=== PATIENT | female | born 1945 | race Caucasian/White ===

== ENCOUNTER → 2017-07-15 | Outpatient (CLI) | payer BC ==
[~2017-07-15] MED LIST: LEVO50TA PO; RALO60TA30 PO
--- NOTE | 2017-07-16 15:08 | MAMMOGRAPHY REPORT ---
BILATERAL DIGITAL SCREENING MAMMOGRAM TOMOSYNTHESIS WITH CAD: 07/15/2017 CLINICAL HISTORY: Routine screening. Patient has no complaints. TECHNIQUE: Breast tomosynthesis in addition to standard 2D mammography was performed. Current study was also evaluated with a Computer Aided Detection (CAD) system. COMPARISON: Comparison is made to exams dated: 05/14/2016 mammogram, 02/13/2015 mammogram, 12/13/2013 mammogram, 11/04/2012 mammogram, 08/22/2011 mammogram, and 03/14/2010 mammogram - [facility] enter. BREAST COMPOSITION: The tissue of both breasts is almost entirely fatty. FINDINGS: There is a stable intramammary lymph node in the right upper outer quadrant. No suspicious mass, architectural distortion or cluster of microcalcifications is seen. IMPRESSION: ACR BI-RADS CATEGORY 1: NEGATIVE There is no mammographic evidence of malignancy. A 1 year screening mammogram is recommended. The pa tient will receive written notification of the results. Approximately 10% of breast cancers are not detected with mammography. A negative mammographic report should not delay biopsy if a clinically suggestive mass is present. Taylor Burr M.D. ay/:07/15/2017 14:32:46 Assembly Lead Person: Simran Macias, [facility] letter sent: Normal 1/2 BI-RADS Code: ACR BI-RADS Category 1: Negative
== END | disposition home or self-care (01) ==
LOC: C.MAMM 11:16
PROVIDERS: ATTEND Obstetrics & Gynecology
DX: Z12.31 Encounter for screening mammogram for malignant neoplasm of breast (principal)

== ENCOUNTER → 2017-09-18 | Outpatient (CLI) | payer BC ==
--- NOTE | 2017-09-18 16:18 | DIAGNOSTIC IMAGING REPORT ---
CHEST 2 VIEWS ROUTINE HISTORY: 72 years-old Female EXERTIONAL DYSPNEA acute dyspnea with shortness of breath COMPARISON: Chest radiographs 05/02/2008 TECHNIQUE: PA and lateral views of the chest FINDINGS: Cardiomediastinal and hilar silhouettes are within normal limits. Mild tortuosity of the descending thoracic aorta. No pneumothorax, pleural effusion, focal airspace consolidation or overt pulmonary edema. The bones of the chest appear grossly intact. Degenerative changes are seen within the shoulders and spine. IMPRESSION: No acute process. The above report was generated using voice recognition software. It may contain grammatical, syntax or spelling errors. Electronically signed by: Nick Gaines M.D. 09/18/2017 4:16 PM Dictated Date/Time: 09/18/2017 4:14 PM
== END | disposition home or self-care (01) ==
LOC: C.RAD 15:44
PROVIDERS: ATTEND Family Medicine
DX: R06.09 Other forms of dyspnea (principal)

== ENCOUNTER → 2017-10-02 | Outpatient (CLI) | payer BC | END | disposition home or self-care (01) | LOC: C.MAMM 12:43 | PROVIDERS: ATTEND Family Medicine | DX: M85.852 Other specified disorders of bone density and structure, left thigh (principal) ==

== ENCOUNTER 2022-06-05 08:26 | Inpatient (IN) ==
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
--- NOTE | 2022-06-05 09:25 | XRay Report ---
XR chest 1V portable HISTORY: 77 years-old Female Chest pain, nonspecific acute chest pain COMPARISON: Chest radiograph 04/11/2018 TECHNIQUE: AP view of the chest FINDINGS: Cardiac silhouette is enlarged. Pulmonary vascular congestion. No pneumothorax, large pleural effusio n or lobar airspace consolidation. Degenerative changes of the shoulders and spine. Loose body of the left axillary recess. IMPRESSION: Cardiomegaly with pulmonary vascular congestion. ACT 112: Negative or not required by law. The above report was generated using voice recognition software. It may contain grammatical, syntax o r spelling errors. Electronically signed by: Erick Gaines M.D. 06/05/2022 9:23 AM
[2022-06-05 09:36] LABS: Basophils # (auto) 0.04 K/uL (0-0.2); Basophils % (auto) 0.7 %; Eosinophils # (auto) 0.27 K/uL (0-0.50); Eosinophils % (auto) 4.8 %; Hematocrit (blood only) 40.3 % (34.1-44.9); Hemoglobin 13.4 g/dl (12.0-16.0); Immature Granulocytes # (auto) 0.02 K/uL (0.00-0.02); Immature Granulocytes % (auto) 0.4 %; Mean Corpuscular Hemoglobin 31.2 pg (25.0-34.0); Mean Corpuscular Hgb Conc 33.3 g/dL (32.0-36.0); Mean Corpuscular Volume 93.9 fL (80.0-100.0); Mean Platelet Volume 9.6 fL (9.4-12.3); Monocytes # (auto) 0.51 K/uL (0.24-0.82); Neutrophils # (auto) 3.52 K/uL (1.4-6.5); Neutrophils % (auto) 62.1 %; Platelet Count 250 K/uL (130-400); Red Blood Count 4.29 M/uL (3.93-5.22); White Blood Count 5.66 K/ul (4.8-10.8)
[2022-06-05 10:16] LABS: Albumin Globulin Ratio 1.3 (0.9-2); BUN Creatinine Ratio 20.3 (10-20); Bilirubin,Total 0.6 mg/dl (0.2-1.0); Calcium 9.7 mg/dl (8.5-10.1); Creatinine Clr Calc Pharmacy 60.6 ml/min; Est GFR (African American) 84.3 ml/min; Est GFR (Non-African American) 72.7 ml/min; Globulin 3.1 gm/dl (2.5-4.0); Potassium 3.9 mmol/L (3.5-5.1); Total Protein 7.1 gm/dl (6.0-8.3)
[2022-06-05 10:19] LABS: Troponin I High Sensitivity 634.1 pg/ml (0-14)
[2022-06-05] MEDS ORDERED: ASPIRIN CHEW 324 MG PO STA (10:22)
[2022-06-05] MEDS ORDERED: FUROSEMIDE INJ 20 MG/2 ML VIAL IV STA (10:41)
--- NOTE | 2022-06-05 10:50 | History & Physical Report ---
Date of Service June 05, 2022 Assessment & Plan (1) Shortness of breath: Plan: New orthopnea 2 days, 10 seconds of chest pain otherwise chest pain-free. In the setting of EKG changes as below and elevated troponin Stat echo ordered. Discussed with cardiology, on initial review appears to be globally hypokinetic. Recommend proceeding with cath today. CXR: Cardiomegaly with pulmonary vascular congestion. - EKG: Normal sinus rhythm. Left bundle branch block. QTc 510 MS. Compared to 08/05/2019 QRS has widened, left bundle branch is new. - No leukocytosis, Hemoglobin 13.4, Sodium 141, Potassium 3.9 - Creatinine 0.79, with normal baseline - Admitting troponin 634.1 - COVID-negative Lasix ordered, and continued daily -Last stress echo 03/2018: Normal at 7.1 METS, no inducible EKG changes/chest pain at that time. EF 55-60% with appropriate augmentation. No inducible wall motion abnormalities at that time (2) Type 2 diabetes mellitus: Plan: Well-controlled, per patient last A1c 6.1 on metformin 500 mg daily Glucose checks AC/at bedtime Hold home metformin SSI goal [id number], minimal home medication requirements will start with conservative scale (3) Hypothyroidism: Plan: Continue Synthroid alternating between 50 and 75 mcg daily TSH/T4 pending (4) Orthopnea: Plan: Suspect due to CHF, cardiac eval as above DVT prophylaxis: Lovenox Diet: N.p.o. pending cardiac evaluation, then low-salt Disposition: PCU CODE STATUS: DNR/DNI, discussed with patient and (5) Hyperlipidemia: Plan: Continue rosuvastatin, dose adjustment pending results of cardiac eval and lipid panel History of Present Illness Primary Care Provider: Anthony Marte MD Ida is a 77-year-old female with a past medical history of hypothyroidism, hyperlipidemia, type 2 diabetes Who presents with shortness of breath. She has had 1 day of cough, chills, shortness of breath without nausea/vomiting/diarrhea. She is unable to ambulate due to severe dyspnea on exertion EKG: Normal sinus rhythm. Left bundle branch block. QTc 510 MS. Compared to 08/05/2019 QRS has widened, left bundle branch is new. No leukocytosis Hemoglobin 13.4 Sodium 141 Potassium 3.9 Creatinine 0.79, with normal baseline Admitting troponin 634.1 COVID-negative CXR: Cardiomegaly with pulmonary vascular congestion. Loose body of the left axillary recess no Stress echo 03/2018: Normal at 7.1 METS, no inducible EKG changes/chest pain at that time. EF 55-60% with appropriate augmentation. No inducible wall motion abnormalities at that time Ida is seen at the beside. Reports a few days ago she started to develop a dry cough. Worse when laying down and associated with a gurgly wheeze just when laying down. Started developing worsening dyspnea with exertion and foun djust coming up from the basement completely winded. +cough she had to strain to bring up some clearish phlegm/spit. She came in this morning because 3-4am she woke up in bed and felt like she was out of breath like she ran just laying in bed. No improvement with rest of sitting in a chair. Waiting until 8am and talked to Dr. Bunn's nurse who recommended to come in. No chest pain at any point, but when she was very out of breath this morning she sat up in a chair had some bilateral backpain below the shoulders but above the lumbar spine. No back pain at time of assessment. Lasted only 10 seconds. No hx of CAD. Distant history of an EKG 'little spot' but not sure what is was Meds Reconciled Last Aic ~6.1 per patient Fhx: Father when Ida was young, empysema. Had early heart failure but doesn't know the details. Medical History: Reviewed Medications: Reviewed. Synthroid Surgical History: Reviewed Allergies: Reviewed Social History: Social tobacco in college, smoked ~8 years 1ppd none in last 40 years. Social alcohol maybe 1x per week, 1 drink. Decab soda Code Status: Surrogate DM Jace Isaac [phone]. Allergies Allergy/AdvReac Type Severity Reaction Status Date / Time codeine AdvReac Mild EXCITABILIT Verified 01/16/22 13:52 Y Home Medications Medication Instructions Recorded Confirmed Type calcium 600 mg-D3 800 unit-mag11 1 tab PO DAILY 04/11/18 06/05/22 History 50 es-pmyz-ucegkk-ashley-s.borat tablet (Caltrate 600-D Plus Minerals) fluocinonide 0.05 % topical cream 1 applic topical UD PRN Dry Skin 04/11/18 06/05/22 History multivitamin 1 tab PO DAILY 04/11/18 06/05/22 History btctkzq-cjqnqhsvwisut-wxdhxvrv 250 1 tab PO 09/21/19 11/23/21 History mg-250 mg-65 mg tablet ibuprofen 200 mg capsule 200 mg PO 09/21/19 11/23/21 History rosuvastatin 5 mg tablet (Crestor) 5 mg PO DAILY 11/23/21 06/05/22 History levothyroxine 50 mcg tablet 50 mcg PO DAILY 01/16/22 06/05/22 History (Synthroid) metformin 500 mg tablet 500 mg PO BID 01/16/22 06/05/22 History Past Med/Surg History Medical History (Updated 06/05/22 @ 11:24 by Edward Rivera MD) Diverticulitis History of mammogram Hyperlipidemia Hypothyroidism Osteopenia Thyroid disease Surgical History H/O foot surgery History of colonoscopy History of tonsillectomy and adenoidectomy History of tubal ligation History of wisdom tooth extraction Status post laser cataract surgery of both eyes Family History Sister Uterine cancer at age 69 Mother Non Hodgkin's lymphoma Social History Smoking Status: Never smoker packs per day: 1; Cigarettes Per Day: 20; Second Hand Exposure: No; Hx Alcohol Use: Yes Hx Substance Use: No Preferred Language: Chinese Communication Ability: Effective 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 NAD. Cooperative. HEENT: Atraumatic, normocephalic. Vision/hearing grossly intact. Pulm: CTAB A&P. -wheezes, -rales, -rhonchi. Symmetrical chest rise. No increase in work of breathing. No respiratory distress. Cardiac: Tachycardic, regular, -mrg. Radial pulses intact and symmetrical. JVD the pending reassessment, patient was undergoing echo at time of initial visit Abdominal: Nontender, nondistended, soft. BS present. Extremities: No pedal edema. Sensation in hands and feet intact without asymmetry. Moving upper extremities equally Results & Data Results & Data ([facility]) Vital Signs (Past 12 Hours) Vital Signs Temp Pulse Resp BP Pulse Ox O2 Del Method 06/05/22 08:32 37 C 103 H 28 H 136/82 98 Room Air PG Care Time/CCT Total # of Minutes Spent Total Time Spent with Patient: Total time spent is greater than 50% in coordination of care (as documented) at patient's floor/unit and/or counseling patient: Coding Level of Care Code 63462 Initial Inpt Care Lvl 3 Diagnoses Shortness of breath R06.02 Type 2 diabetes mellitus E11.9 Hypothyroidism E03.9 Orthopnea R06.01 Hyperlipidemia E78.5
[2022-06-05 11:11] LABS: D Dimer 1030 ug/L FEU (0-500)
[2022-06-05] MEDS ORDERED: FUROSEMIDE 40 MG/4 ML VIAL IV ONE (11:49)
--- NOTE | 2022-06-05 13:08 | XCELERA ---
[id number]
--- NOTE | 2022-06-05 14:23 | Electrocardiogram Report ---
Test Reason : Blood Pressure : / mmHG Vent. Rate : 095 BPM Atrial Rate : 095 BPM P-R Int : 202 ms QRS Dur : 154 ms QT Int : 406 ms P-R-T Axes : 048 -47 077 degrees QTc Int : 510 ms Normal sinus rhythm Left axis deviation Left bundle branch block Abnormal ECG When compared with ECG of 05-AUG-2019 12:23, Left bundle branch block is now Present Criteria for Inferior infarct are no longer Present Confirmed by Luis Felipe Meza ([id number]) on 06/05/2022 2:22:49 PM Referred By: Confirmed By:Luis Felipe Meza
[2022-06-05] MEDS ORDERED: DEXTROSE 50% 50 ML SYRINGE IV PRN (14:58)
[2022-06-05] MEDS ORDERED: GLUCOSE 10 TAB/TUBE PO PRN (14:58)
[2022-06-05] MEDS ORDERED: GLUCAGON FOR INJ 1 MG VIAL SQ PRN (14:58)
[2022-06-05] MEDS ORDERED: CARBOHYDRATES FOR HYPOGLYCEMIA PO PRN (14:58)
[2022-06-05] MEDS ORDERED: ACETAMINOPHEN 325 MG TAB PO PRN (14:58)
[2022-06-05] MEDS ORDERED: GLUCOSE 40% GEL 15 GM TUBE PO PRN (14:58)
[2022-06-05] MEDS ORDERED: HEPARIN (PORCINE) 1000 UNIT/ML 10 ML (CATH LAB USE ONLY) ONE (15:15)
[2022-06-05] MEDS ORDERED: niCARdipine HCL INJ 2.5 MG/ML 10 ML AMP ONE (15:15)
[2022-06-05] MEDS ORDERED: fentaNYL citrate 100 MCG/2 ML VIAL ONE (15:15)
[2022-06-05] MEDS ORDERED: NITROGLYCERIN/D5W 100MCG/ML 20ML SYR ONE (15:16)
[2022-06-05] MEDS ORDERED: MIDAZOLAM HCL 1 MG/ML 2ML VIAL ONE (15:16)
[2022-06-05 16:13] LABS: Thyroid Stimulating Hormone 5.497 uIu/ml (0.300-4.500)
--- NOTE | 2022-06-05 16:43 | Pre Anesthesia Assessment ---
Date of Service June 05, 2022 Pre Sedation Assessment Vital Signs Temp Pulse Pulse Resp BP BP Pulse Ox 06/05/22 15:41 95 H 16 131/82 98 06/05/22 15:00 105 H 19 140/88 95 06/05/22 14:30 105 H 20 06/05/22 14:00 106 H 21 06/05/22 13:30 96 H 17 94 06/05/22 13:00 101 H 17 94 06/05/22 13:00 148/102 H 06/05/22 12:39 99 H 28 H 92 06/05/22 12:39 137/86 06/05/22 12:41 103 H 20 137/86 92 06/05/22 11:00 105 H 26 H 92 06/05/22 11:00 129/84 06/05/22 10:37 92 H 14 93 06/05/22 10:00 112 H 22 94 06/05/22 10:00 120/80 06/05/22 09:30 135 H 15 92 06/05/22 09:00 111 H 16 94 06/05/22 08:58 100 H 20 94 06/05/22 11:55 95 06/05/22 08:32 98.6 F 103 H 28 H 136/82 98 O2 Del Method 06/05/22 15:41 Room Air 06/05/22 15:00 06/05/22 14:30 06/05/22 14:00 06/05/22 13:30 06/05/22 13:00 06/05/22 13:00 06/05/22 12:39 06/05/22 12:39 06/05/22 12:41 Room Air 06/05/22 11:00 06/05/22 11:00 06/05/22 10:37 06/05/22 10:00 06/05/22 10:00 06/05/22 09:30 06/05/22 09:00 06/05/22 08:58 06/05/22 11:55 Room Air 06/05/22 08:32 Room Air Cardiovascular RRR, no murmur, no edema Respiratory normal respiratory effort, lungs clear to auscultation Pre-Sedation Airway Assessment Smoking Status: Never smoker Hx Sleep Apnea: No Hx Difficult Intubation: No Short, Thick Neck: No Thyromental Distance: < 3.5 Finger Breadths Oral Cavity: + WNL Mallampati Class: III ASA: ASA3 NPO Status Date of Last Intake of Fluids: 06/04/22 Time of Last Intake of Fluids: 20:00 Date of Last Intake of Solid Food: 06/04/22 Time of Last Intake of Solid Foods: 20:00 Procedure Planning Contraindications for Sedation: none Current Medications Reviewed: Yes Notes The planned sedation has been discussed with the patient. Informed Consent was obtained. I have identified the patient, determined the appropriateness of sedation and have assessed the patient immediately prior to the procedure. All medicine(s) and interventions are by my order.
--- NOTE | 2022-06-05 16:44 | Post Anesthesia Assessment ---
Date of Service June 05, 2022 Post Sedation Assessment Vital Signs Temp Pulse Pulse Resp BP BP Pulse Ox 06/05/22 15:41 95 H 16 131/82 98 06/05/22 15:00 105 H 19 140/88 95 06/05/22 14:30 105 H 20 06/05/22 14:00 106 H 21 06/05/22 13:30 96 H 17 94 06/05/22 13:00 101 H 17 94 06/05/22 13:00 148/102 H 06/05/22 12:39 99 H 28 H 92 06/05/22 12:39 137/86 06/05/22 12:41 103 H 20 137/86 92 06/05/22 11:00 105 H 26 H 92 06/05/22 11:00 129/84 06/05/22 10:37 92 H 14 93 06/05/22 10:00 112 H 22 94 06/05/22 10:00 120/80 06/05/22 09:30 135 H 15 92 06/05/22 09:00 111 H 16 94 06/05/22 08:58 100 H 20 94 06/05/22 11:55 95 06/05/22 08:32 98.6 F 103 H 28 H 136/82 98 O2 Del Method 06/05/22 15:41 Room Air 06/05/22 15:00 06/05/22 14:30 06/05/22 14:00 06/05/22 13:30 06/05/22 13:00 06/05/22 13:00 06/05/22 12:39 06/05/22 12:39 06/05/22 12:41 Room Air 06/05/22 11:00 06/05/22 11:00 06/05/22 10:37 06/05/22 10:00 06/05/22 10:00 06/05/22 09:30 06/05/22 09:00 06/05/22 08:58 06/05/22 11:55 Room Air 06/05/22 08:32 Room Air Recovery Score Activity: Moves 4 extremities Respiration: Deep Breath/Cough Circulation: +/-20% PreAnes Value Consciousness: Fully Awake Oxygen Saturation: O2 needed for >90% Discharge Sedation Level of Care: Fast Track Phase II Post Sedation Plan On clinical assessment, the patient appears to have tolerated the sedation wit hout complications. Patient is recovering as anticipated. Patient will continue to be monitored by nursing and may be discharged when sedation discharge criteria are met per below protocol. Upon Completions of procedure up to 15 minutes continue every 5 minute vital signs and the P.A.R. score; then discharge to a Phase I or Fast Track to Phase II per the following guidelines: * Discharge Patient to appropriate Phase II area if PAR is 8 or greater or return to pre- procedure baseline. The post - procedure orders will be as directed. * If PAR score is less than 8 or not return to pre-procedure baseline then patient will follow Phase I monitoring till PAR is reached for Phase II. The Phase I may be done in procedure room or may call to secure a Phase I area. * If naloxone or flumazenil are used for reversal, hold in Phase I for continued monitoring from when last reversal dose was given for a minimum of 60 minutes or longer pending the nurse and/or physician discretion of patient condition before discharge to Phase II. Please call the Sedation Physician to re-evaluate and complete post-note for discharge to Phase II area. Do NOT discharge from procedure sedation or Phase 1 until post- sedation evaluation note is complete by procedure /sedation MD Sedation Discharge Instructions to be given to the patient at discharge to home.
[2022-06-05 16:45] LABS: T4 Free Thyroxine 1.28 ng/dl (0.61-1.60)
--- NOTE | 2022-06-05 16:52 | Cardiac Catheterization ---
[facility] Data: [employer] Cardiac Status Clinical evaluation leading to the procedure CAD Presenation: Non STEMI Anginal Classification: CCS IV Diagnostic Physicians Name: Yariel Metcalf MD Closure Device Recommendations: Medical Therapy and/or Counseling Cardiac Cath Procedure Full Procedure Date June 05, 2022 Pre-Procedure Diagnosis Pre-Procedure Diagnosis: Acute Coronary Syndrome and CHF AUC Score AUC Score: 8 Post-Procedure Diagnosis Post-Procedure Diagnosis: Mild CAD and Elevated Intracardiac Pressures Procedure(s) Performed Procedure(s) Performed: Coronary Angiography and Left Heart Cath Dairy Feed Mixing Operator Yariel Metcalf MD Mobile Developer(s) Cfd Engineer Estimated Blood Loss Estimated Blood Loss: 5 Medication(s) Medication(s): Fentanyl, Heparin, Lidocaine 1%, Nicardipine, Nitroglycerin and Versed Summary of Findings Indication: Acute heart failure, left bundle branch block, new severe LV dysfunction. Suspected ACS Access: 6 Fr right radial artery Catheters: Reading Findings: LM -normal caliber, no significant disease LAD -large caliber, proximal/mid segment luminal regularities. Distal vessel without significant disease and wraps around the apex. Medium D2 with 30% ostial stenosis. Circumflex -large caliber, gives off medium caliber OM 2 and left PLB. 30% ostial stenosis. RCA -dominant, large caliber, midsegment luminal irregularities. 20 to 30% distal stenosis. PDA/PLB without significant disease LVEDP -20 Arterial Closure: TR band Summary: 1. Minimal nonobstructive coronary artery disease -20 to 30% distal RCA 30% ostial circumflex 30% ostial D2 2. Elevated intracardiac filling pressure (LVEDP 20). Recommendations: Start guideline directed medical therapy for nonischemic cardiomyopathy Continue gentle diuresis Continue ASCVD risk factor modification Hemodynamics Rest Ao:: 117/72/124 Final Ao: 120/70/92 LV: 122/20 Recommendations Recommendations: Medical Therapy and/or Counseling Specimens Specimens: None Radiation Exposure (mGy) 470 Contrast (mls) 55 Anesthesia Moderate [id number] Procedural Complication(s) None Disposition [employer] Holding/Recovery I attest to the content of the Intraoperative Record and any orders documented therein. Any exceptions are noted below. [employer] Card Cath Procedure Codes Cardiac Catheterization Procedure 1: Cardiovascular Cath Procedures: 14687 Coronaries and LHC (+/-LV) Moderate Sedation Procedure 1: Sedation/Anesthesia: 89106 Mod Sedation by the same physician;Init15 Min Child Age 5 & Up PG Care Time/CCT Total # of Minutes Spent Total Time Spent with Patient: Total time spent is greater than 50% in coordination of care (as documented) at patient's floor/unit and/or counseling patient:
[2022-06-05] MEDS: INSULIN ASPART PER UNIT SC SCH ×3 (20:17→20:21)
[2022-06-05] MEDS ORDERED: MELATONIN 3 MG TAB PO STA (22:14)
--- NOTE | 2022-06-05 23:29 | Cardiology Consultation ---
Date of Consultation June 05, 2022 Assessment & Plan (1) CHF (congestive heart failure): 2. Severe LV dysfunctionEF 25% 3. Left bundle branch block 4. Myocardial necrosis 5. Mild to moderate mitral regurgitation 6. Type 2 DM 7. Hypothyroidism Patient presented with signs and symptoms of acute heart failure and was found on echo to have new severe LV dysfunction. In the setting of left bundle branch block on EKG and elevated troponin there was concern for ACS and patient underwent urgent cardiac catheterization. Catheterization revealed minimal nonobstructive coronary artery disease. LVEDP mildly elevated at 20. Patient with new nonischemic cardiomyopathy and resulting acute heart failure. Recommend admission for gentle diuresis, monitoring and initiation of GDMT. Recommendations: Continue Lasix 20 mg IV daily Start Toprol-XL 25 mg, Entresto 2426 (confirm option with case management). -- Plan to start MRA as BP allows and will consider SGLT2 as an outpatient check iron studies, SPEP/UPEP, lyme studies and viral serologies Continue ASCVD risk factor modificationstart aspirin, statin Will follow History of Present Illness Attending Physician: Edward Rivera MD History of Present Illness Mrs. Isaac is a very pleasant 77-year-old woman seen urgently in the ED in the setting of suspected ACS, acute heart failure. Patient has no significant prior cardiac history. Other medical issues include type 2 diabetes on metformin, dyslipidemia, hypothyroidism and remote tobacco abuse. No family history of premature CAD. Patient presented to ED with approximately 3 days of exertional dyspnea, new orthopnea. Night prior to presentation was awoken with shortness of breath. Maybe had 1 episode of sharp pain across her back that lasted for seconds but otherwise no chest pain. No palpitations. No lower extremity edema. In ED ECG showed left bundle branch block not known previously. HS TropI mildly elevated at 600. Chest x-ray with pulmonary vascular congestion. Echo showed global severe LV dysfunction EF around 25% with mild to moderate MR. Allergies Allergy/AdvReac Type Severity Reaction Status Date / Time codeine AdvReac Mild EXCITABILIT Verified 01/16/22 13:52 Y Home Medications Medication Instructions Recorded Confirmed Type calcium 600 mg-D3 800 unit-mag11 1 tab PO DAILY 04/11/18 06/05/22 History 50 rk-gkbj-snmita-ashley-s.borat tablet (Caltrate 600-D Plus Minerals) fluocinonide 0.05 % topical cream 1 applic topical UD PRN Dry Skin 04/11/18 06/05/22 History multivitamin 1 tab PO DAILY 04/11/18 06/05/22 History rtufugc-sdcvdpxvrafuf-unlalrvp 250 1 tab PO 09/21/19 11/23/21 History mg-250 mg-65 mg tablet ibuprofen 200 mg capsule 200 mg PO 09/21/19 11/23/21 History rosuvastatin 5 mg tablet (Crestor) 5 mg PO DAILY 11/23/21 06/05/22 History levothyroxine 50 mcg tablet 50 mcg PO DAILY 01/16/22 06/05/22 History (Synthroid) metformin 500 mg tablet 500 mg PO BID 01/16/22 06/05/22 History Patient History Medical History (Updated 06/05/22 @ 13:51 by Douglas Marino DO) Diverticulitis History of mammogram Hyperlipidemia Hypothyroidism Osteopenia Thyroid disease Surgical History H/O foot surgery History of colonoscopy History of tonsillectomy and adenoidectomy History of tubal ligation History of wisdom tooth extraction Status post laser cataract surgery of both eyes Family History Sister Uterine cancer at age 69 Mother Non Hodgkin's lymphoma Social History Smoking Status: Former smoker packs per day: 1; Cigarettes Per Day: 20; Second Hand Exposure: No; Hx Alcohol Use: Yes Alcohol type: wine Hx Substance Use: No Preferred Language: Faroese Communication Ability: Effective 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 Vascular: 2+ radial, DP pulses. No bruits Abdomen: Soft, nontender Extremities: Well perfused, no peripheral edema Neuro: Nonfocal Psych: Alert orient x3, normal affect and mood Results & Data ([facility]) Vital Signs (Past 12 Hours) Vital Signs Temp Pulse Pulse Resp BP BP BP 06/05/22 23:03 98.2 F 94 H 18 119/79 06/05/22 18:49 98 H 18 122/84 06/05/22 18:19 94 H 18 123/79 06/05/22 18:05 98.1 F 95 H 18 123/80 06/05/22 18:00 98.1 F 93 H 18 123/80 06/05/22 17:15 89 17 118/68 06/05/22 17:30 93 H 16 111/71 06/05/22 17:00 88 16 117/71 06/05/22 16:41 97 H 18 123/71 06/05/22 15:41 95 H 16 131/82 06/05/22 15:00 105 H 19 140/88 06/05/22 14:30 105 H 20 06/05/22 14:00 106 H 21 06/05/22 13:30 96 H 17 06/05/22 13:00 101 H 17 06/05/22 13:00 148/102 H 06/05/22 12:39 99 H 28 H 06/05/22 12:39 137/86 06/05/22 12:41 103 H 20 137/86 06/05/22 11:55 Pulse Ox O2 Del Method 06/05/22 23:03 94 Room Air 06/05/22 18:49 94 Room Air 06/05/22 18:19 95 Room Air 06/05/22 18:05 97 Room Air 06/05/22 18:00 96 Room Air 06/05/22 17:15 92 Room Air 06/05/22 17:30 92 Room Air 06/05/22 17:00 93 Room Air 06/05/22 16:41 95 Room Air 06/05/22 15:41 98 Room Air 06/05/22 15:00 95 06/05/22 14:30 06/05/22 14:00 06/05/22 13:30 94 06/05/22 13:00 94 06/05/22 13:00 06/05/22 12:39 92 06/05/22 12:39 06/05/22 12:41 92 Room Air 06/05/22 11:55 95 Room Air PG Care Time/CCT Total # of Minutes Spent Total Time Spent with Patient: Total time spent is greater than 50% in coordination of care (as documented) at patient's floor/unit and/or counseling patient: Coding Level of Care Code 59485 Initial Inpt Care Lvl 3 Diagnoses CHF (congestive heart failure) I50.9
[2022-06-06 08:06] LABS: Basophils # (auto) 0.04 K/uL (0-0.2); Basophils % (auto) 0.6 %; Eosinophils # (auto) 0.29 K/uL (0-0.50); Eosinophils % (auto) 4.7 %; Hemoglobin 13.9 g/dl (12.0-16.0); Immature Granulocytes # (auto) 0.02 K/uL (0.00-0.02); Immature Granulocytes % (auto) 0.3 %; Lymphocytes # (auto) 1.39 K/uL (1.2-3.4); Lymphocytes % (auto) 22.5 %; Mean Corpuscular Hemoglobin 32.7 pg (25.0-34.0); Mean Corpuscular Hgb Conc 34.8 g/dL (32.0-36.0); Mean Corpuscular Volume 94.1 fL (80.0-100.0); Mean Platelet Volume 9.8 fL (9.4-12.3); Monocytes # (auto) 0.56 K/uL (0.24-0.82); Monocytes % (auto) 9.1 %; Neutrophils # (auto) 3.88 K/uL (1.4-6.5); Neutrophils % (auto) 62.8 %; Platelet Count 281 K/uL (130-400); RDW Coefficient of Variation 13.2 % (11.5-14.5); RDW Standard Deviation 44.9 fL (36.4-46.3); Red Blood Count 4.25 M/uL (3.93-5.22); White Blood Count 6.18 K/ul (4.8-10.8)
[2022-06-06] MEDS: INSULIN ASPART PER UNIT SC SCH ×2 (08:13→12:12)
[2022-06-06 08:44] LABS: BUN Creatinine Ratio 18.5 (10-20); Calcium 9.3 mg/dl (8.5-10.1); Chol HDL Ratio 2.2 (0-5); Creatinine Clr Calc Pharmacy 58.1 ml/min; Est GFR (African American) 81.8 ml/min; Est GFR (Non-African American) 70.5 ml/min; Potassium 3.7 mmol/L (3.5-5.1)
[2022-06-06 08:50] LABS: Ferritin 112.7 ng/ml (8-388)
[2022-06-06] MEDS ORDERED: ENOXAPARIN INJ 40 MG/0.4 ML SYR SQ SCH (09:00)
[2022-06-06] MEDS ORDERED: FUROSEMIDE INJ 20 MG/2 ML VIAL IV SCH (09:00)
[2022-06-06] MEDS ORDERED: ROSUVASTATIN CALCIUM 5 MG TAB PO SCH (09:00)
[2022-06-06] MEDS ORDERED: ASPIRIN 81 MG ECTAB PO SCH (09:00)
[2022-06-06] MEDS ORDERED: VALSARTAN/SACUBITRIL 26/24MG TAB PO SCH (09:00)
[2022-06-06] MEDS ORDERED: METOPROLOL SUCC 25MG EXT REL TAB PO SCH (09:00)
[2022-06-06 09:29] LABS: Estimated Average Glucose 131 mg/dl; Hemoglobin A1C 6.2 % (4.5-5.6)
[2022-06-06 09:35] LABS: Lyme Ab IgG w/WB Rflx Negative (Negative); Lyme Ab IgM w/WB Rflx Negative (Negative)
--- NOTE | 2022-06-06 10:21 | Hospitalist Progress Note ---
Date of Service June 06, 2022 Assessment & Plan (1) Non-ischemic cardiomyopathy: Plan: Entresto 1 tab BID started by cardiology - will monitor renal function on this Also started on metoprolol succinate 25g PO daily Workup per cardiology - lyme antibodies, SPEP (FLC ratio and immunofixation also sent), UPEP, ferritin + transferrin sats, will defer viral serologies to cardiology (2) Acute HFrEF (heart failure with reduced ejection fraction): Plan: Cardiomyopathy management as above Continue diuresis with Lasix 20mg IV dialy I&Os: -ve 300ml since admission Daily weights - No change (3) Shortness of breath: Plan: New orthopnea 2 days, 10 seconds of chest pain otherwise chest pain-free. In the setting of EKG changes as below and elevated troponin Stat echo ordered. Discussed with cardiology, on initial review appears to be globally hypokinetic. Recommend proceeding with cath today. CXR: Cardiomegaly with pulmonary vascular congestion. - EKG: Normal sinus rhythm. Left bundle branch block. QTc 510 MS. Compared to 08/05/2019 QRS has widened, left bundle branch is new. - No leukocytosis, Hemoglobin 13.4, Sodium 141, Potassium 3.9 - Creatinine 0.79, with normal baseline - Admitting troponin 634.1 - COVID-negative Lasix ordered, and continued daily -Last stress echo 03/2018: Normal at 7.1 METS, no inducible EKG changes/chest pain at that time. EF 55-60% with appropriate augmentation. No inducible wall motion abnormalities at that time (4) Type 2 diabetes mellitus: Plan: Well-controlled, per patient last A1c 6.1 on metformin 500 mg daily Glucose checks AC/at bedtime Hold home metformin SSI goal [id number], minimal home medication requirements will start with conservative scale (5) Hypothyroidism: Plan: Continue Synthroid alternating between 50 and 75 mcg daily TSH/T4 pending (6) Orthopnea: Plan: Suspect due to CHF, cardiac eval as above DVT prophylaxis: Lovenox Diet: N.p.o. pending cardiac evaluation, then low-salt Disposition: PCU CODE STATUS: DNR/DNI, discussed with patient and (7) Hyperlipidemia: Plan: Continue rosuvastatin, dose adjustment pending results of cardiac eval and lipid panel Plan VTE Prophylaxis - Lovenox 40mg SQ daily Admission and Anticipated Discharge Date Admission Date: June 05, 2022 Results & Data Results & Data ([facility]) Vital Signs (Past 12 Hours) Vital Signs Temp Pulse Pulse Resp BP Pulse Ox O2 Del Method 06/06/22 08:16 36.7 C 95 H 17 117/77 91 Room Air 06/06/22 03:10 36.5 C 65 18 136/71 97 Room Air 06/05/22 23:59 84 06/05/22 23:03 36.8 C 94 H 18 119/79 94 Room Air PG Care Time/CCT Total # of Minutes Spent Total Time Spent with Patient: Total time spent is greater than 50% in coordination of care (as documented) at patient's floor/unit and/or counseling patient: Coding Diagnoses Non-ischemic cardiomyopathy I42.8 Acute HFrEF (heart failure with reduced ejection fraction) I50.21 Shortness of breath R06.02 Type 2 diabetes mellitus E11.9 Hypothyroidism E03.9 Orthopnea R06.01 Hyperlipidemia E78.5
--- NOTE | 2022-06-06 13:19 | Cardiology Progress Note ---
Date of Service June 06, 2022 Assessment & Plan (1) CHF (congestive heart failure): Plan: 2. Severe LV dysfunctionEF 25% 3. Left bundle branch block 4. Myocardial necrosis 5. Mild to moderate mitral regurgitation 6. Type 2 DM 7. Hypothyroidism Stable from a cardiac standpoint. Breathing feels at baseline. No significant congestion on exam. No access site complications. From a cardiac standpoint OK with discharge today. Home on: Toprol-XL 25 mg, Entresto 2426 (confirm option with case management). -- Lasix 20mg daily. -- Repeat BMP next week. -- Plan to start MRA as BP allows and will consider SGLT2 as an outpatient Continue aspirin and current statin --Discussed salt restriction, daily weights. Follow-up with me next week. Admission and Anticipated Discharge Date Admission Date: June 05, 2022 Subjective Feeling well this morning. Tired when up walking to bathroom but breathing feels back at baseline. No chest pain. No dizziness. Tele reviewed - no events. Review of Systems Review of Systems: All systems reviewed & are unremarkable except as noted in HPI & below Physical Exam Physical Exam: General: Comfortable lying almost flat, off oxygen HEENT: Sclerae anicteric Lungs: clear bilaterally, no crackles Cardiac: Regular rate and rhythm, no murmurs. No JVD. Vascular: 2+ radial, no access site complications. Abdomen: Soft, nontender Extremities: Well perfused, no peripheral edema Neuro: Nonfocal Psych: Alert orient x3, normal affect and mood Results & Data ([facility]) Vital Signs (Past 12 Hours) Vital Signs Temp Pulse Resp BP Pulse Ox O2 Del Method 06/06/22 11:44 Room Air 06/06/22 11:36 97.5 F L 82 18 96/66 L 92 Room Air 06/06/22 08:16 98.1 F 95 H 17 117/77 91 Room Air 06/06/22 03:10 97.7 F 65 18 136/71 97 Room Air PG Care Time/CCT Total # of Minutes Spent Total Time Spent with Patient: Total time spent is greater than 50% in coordination of care (as documented) at patient's floor/unit and/or counseling patient: Coding Level of Care Code 68081 Subseq Hosp Care Lvl 3 Diagnoses CHF (congestive heart failure) I50.9
--- NOTE | 2022-06-06 15:09 | Discharge Summary ---
Date of Service June 06, 2022 Admission HPI Per Admitting Provider Ida is a 77-year-old female with a past medical history of hypothyroidism, hyperlipidemia, type 2 diabetes Who presents with shortness of breath. She has had 1 day of cough, chills, shortness of breath without nausea/vomiting/diarrhea. She is unable to ambulate due to severe dyspnea on exertion EKG: Normal sinus rhythm. Left bundle branch block. QTc 510 MS. Compared to 08/05/2019 QRS has widened, left bundle branch is new. No leukocytosis Hemoglobin 13.4 Sodium 141 Potassium 3.9 Creatinine 0.79, with normal baseline Admitting troponin 634.1 COVID-negative CXR: Cardiomegaly with pulmonary vascular congestion. Loose body of the left axillary recess no Stress echo 03/2018: Normal at 7.1 METS, no inducible EKG changes/chest pain at that time. EF 55-60% with appropriate augmentation. No inducible wall motion abnormalities at that time Ida is seen at the beside. Reports a few days ago she started to develop a dry cough. Worse when laying down and associated with a gurgly wheeze just when layi ng down. Started developing worsening dyspnea with exertion and foun djust coming up from the basement completely winded. +cough she had to strain to bring up some clearish phlegm/spit. She came in this morning because 3-4am she woke up in bed and felt like she was out of breath like she ran just laying in bed. No improvement with rest of sitting in a chair. Waiting until 8am and talked to Dr. Bunn's nurse who recommended to come in. No chest pain at any point, but when she was very out of breath this morning she sat up in a chair had some bilateral backpain below the shoulders but above the lumbar spine. No back pain at time of assessment. Lasted only 10 seconds. No hx of CAD. Distant history of an EKG 'little spot' but not sure what is was Meds Reconciled Last Aic ~6.1 per patient Fhx: Father when Ida was young, empysema. Had early heart failure but doesn't know the details. Medical History: Reviewed Medications: Reviewed. Synthroid Surgical History: Reviewed Allergies: Reviewed Social History: Social tobacco in college, smoked ~8 years 1ppd none in last 40 years. Social alcohol maybe 1x per week, 1 drink. Decab soda Code Status: Surrogate DM Jace Isaac [phone]. Principal Diagnosis Acute heart failure with reduced ejection fraction Non-ischemic cardiomyopathy Discharge Exam Constitutional WD/WN, vitals as above Respiratory normal respiratory effort, lungs clear to auscultation Cardiovascular RRR, no murmur, no edema Gastrointestinal (Abdomen) normal bowel sounds, soft, nontender, no hepatosplenomegaly Psychiatric A+Ox3, euthymic affect Discharge Data Allergies Allergy/AdvReac Type Severity Reaction Status Date / Time codeine AdvReac Mild EXCITABILIT Verified 01/16/22 13:52 Y Consultations 06/05/22 10:41 Consult Cardiology Stat ED Decision to Admit Stat Procedures Performed Operation Date: 06/05/22 16:00 Actual Procedures p Cath, Left with Cors and Vent - Ray Metcalf MD s Cineradiography w/Routine Exam - Ray Metcalf MD Ordered Studies 06/05/22 15:26 CL Cath Imgs for PACS use only Routine Hospital Course (1) Non-ischemic cardiomyopathy: Ida Isaac is a 77 year old female admitted to [facility] from June 05 - 2021 due to shortness of breath. She was diagnosed with acute heart failure with reduced ejection fraction. Cardiac catheterization showed minimal non obstructive coronary artery disease therefore diagnosed with non-ischemic cardiomyopathy. Subsequent workup for cardiomyopathy was negative for lyme disease and iron studies were normal. Most likely this is due to a viral infection but recommend completing workup with myeloma testing as ordered. She will follow up with cardiology for results of these tests. She was started on metoprolol and Entresto for cardiomyopathy. She was started on Lasix 20mg PO daily for heart failure. She was also advised to stick to a salt intake maximum of 2g/day. She will follow up with cardiology for ongoing Lasix dosing. (2) Acute HFrEF (heart failure with reduced ejection fraction): (3) Shortness of breath: (4) Type 2 diabetes mellitus: (5) Hypothyroidism: (6) Orthopnea: (7) Hyperlipidemia: Total Time Total Time Spent Total Time Spent (In Minutes): 40 Discharge Plan Discharge Items Patient Disposition: Home - Self-Care Reason For Visit: SHORTNESS OF BREATH,NEW HF Discharge Diagnosis: Acute heart failure with reduced ejection fraction (fluid build up in your lungs due to reduced efficiency of your heart muscle) Non-ischemic cardiomyopathy (reduced heart efficiency not caused by plaque disease) Activity: Resume your previous activity Non-emergency contact: Security Installation Sales Technician Call non-emergency contact if: you have any medication questions and your symptoms worsen Follow-up/Referrals: Ray Metcalf MD [Physician] - 06/13/22 10:00 am (1 week follow up Jun 13 @ [address] Metcalf) Anthony Marte MD [Primary Care Provider] - Diet: Carb Consistent or DM2 and Low Sodium (2gm) Ambulatory Orders: Immunofixation Serum (Routine) Location: None Selected Ordered By: Shaggy Razo Protein Electroph,serum (Routine) Location: None Selected Ordered By: Shaggy Razo Addtl Attending Provider Instructions: You were admitted to [facility] from June 05 - 2021 due to shortness of breath. You were diagnosed with acute heart failure with reduced ejection fraction (fluid build up in your lungs due to reduced efficiency of your heart muscle). Cardiac catheterization showed minimal non obstructive coronary artery disease non suspected to be the cause of your cardiomyopathy therefore you were diagnosed with non-ischemic cardiomyopathy (reduced heart efficiency not caused by plaque disease). Subsequent workup for cardiomyopathy was negative for lyme disease and iron studies were normal. Most likely this is due to a viral infection but recommend completing workup with myeloma testing as ordered. Please follow up with your skin diver for results of these tests. You were started on metoprolol and Entresto to help with the rebuilding of your heart muscle. You were started on Lasix (furosemide) to help keep the fluid off your lungs. All these medications reduce your blood pressure therefore if you notice you are getting lightheaded/dizzy please call you skin diver regarding possible stopping one of these. Please also restrict salt intake to maximum of 2g/day to help keep the fluid off. If you are becoming more short of breath you may need an increased dose of Lasix and recommend you call your skin diver for advice regarding this. Please follow up with your skin diver as discussed. Pending Studies at Discharge: Yes (free light chain blood test) Stand-Alone Forms: [facility], Smoking Cessation Medications and DC Order Prescriptions: Continued pfhenpb-cloweqbqshxrh-gjwsennz 250-250-65 mg tablet 1 tab PO rosuvastatin [Crestor] 5 mg tablet 5 mg PO DAILY metformin 500 mg tablet 500 mg PO BID multivitamin Tablet 1 tab PO DAILY fluocinonide 0.05 % cream 1 applic Topical UD PRN (Reason: Dry Skin) Caltrate 600-D Plus Minerals 600 mg calcium- 800 unit-50 mg Tablet 1 tab PO DAILY levothyroxine [Synthroid] 50 mcg tablet 50 mcg PO DAILY Rx Instructions: Patient takes an additional one half tablet every other day Discontinued ibuprofen 200 mg capsule 200 mg PO No Action spironolactone 25 mg tablet 12.5 mg PO DAILY Qty: 45 3RF Entresto 24-26 mg tablet 1 tab PO BID Qty: 180 3RF metoprolol succinate 50 mg tablet extended release 24 hr 50 mg PO DAILY Qty: 90 3RF furosemide [Lasix] 20 mg tablet 20 mg PO DAILY Qty: 90 3RF Discharge Orders: Discharge Order (Routine); Ordered 06/06/22 Ordered By: Shaggy Membreno/Other Patient Handouts: High Blood Sugar (Hyperglycemia), Hypoglycemia (Low Blood Sugar), Managing Type 2 Diabetes, Cardiomyopathy Dc, Low Salt Diet Dc Admission Data Admit Date/Time: 06/05/22 11:31 Attending Provider: Shaggy Razo Admit Provider: Edward Rivera Primary Care Provider: Anthony Marte Other Providers: Ray Metcalf Other Interventions: Discharge Summary Assessment (RN) Last Done: 06/06/22 15:42 Coding Level of Care Code D/C DAY MANAGEMENT >30 MINS Diagnoses Non-ischemic cardiomyopathy I42.8 Acute HFrEF (heart failure with reduced ejection fraction) I50.21 Shortness of breath R06.02 Type 2 diabetes mellitus E11.9 Hypothyroidism E03.9 Orthopnea R06.01 Hyperlipidemia E78.5
[2022-06-07 12:23] LABS: Free Kappa 20.3 mg/L (3.3-19.4); Free Kappa/Lambda Ratio 1.29 (0.26-1.65); Free Lambda 15.7 mg/L (5.7-26.3)
[2022-06-11 05:28] LABS: Creatinine Ur 109 mg/dL (20-275); Protein, Urine Random 9 mg/dL (5-24); Ur Protein/Creat Ratio mg/g 83 mg/g creat (24-184); Urine Abnormal Protein Band 1 DNR mg/dL (NONE DETECTED); Urine Abnormal Protein Band 2 DNR mg/dL (NONE DETECTED); Urine Abnormal Protein Band 3 DNR mg/dL (NONE DETECTED); Urine Protein/Creatinine Ratio 0.083 (0.024-0.184)
--- NOTE | 2022-06-16 08:18 | Coding Query ---
To promote full compliance with coding requirements relating to patient care, provider participation is requested in all cases of testing manager uncertainty. Please assist us with the question(s) below: Coding Question(s): The diagnosis(es) below was documented in the ER report and the Cardiac Catherization report, then subsequently fell off all further documentation. Please indicate if it is still a possible diagnosis or ruled out. Physician's Response(s): NSTEMI ( ) Diagnosed and POA ( ) Diagnosed and not POA ( x ) Ruled out ( ) Other (please specify) Physician Comment: Thank you for your time, and happy Holidays. DESTINY Kwan, RECOVERY UNIT OPERATOR [place]
== END 2022-06-06 16:55 | disposition home or self-care (01) | DRG 286 ==
LOC: ED 08:26 → SUATTDRO 11:31 → EDINP 11:31 → 2S 17:58